=== PATIENT | male | born 1975 | race Caucasian/White ===

== ENCOUNTER 2018-10-26 15:49 | Emergency (ER) | payer MEDICAID ==
[~2018-10-26] VITALS: Ht 185.4 cm; Wt 90.9 kg
[2018-10-26] MEDS ORDERED: LORazepam 1 MG tablet PO ONE (16:05)
[2018-10-26] MEDS ORDERED: LORazepam 0.5 MG tablet PO NR (16:20)
[2018-10-26 16:22] LABS: BASOPHILS # (AUTO) 0.1 X10'3 (0-0.2); BASOPHILS % (AUTO) 0.4 % (0-1); EOSINOPHILS # (AUTO) 0.2 X10'3 (0-0.9); EOSINOPHILS % (AUTO) 1.3 % (0-6); HEMATOCRIT 42.1 % (42.0-52.0); HEMOGLOBIN 14.5 g/dl (14.0-17.9); LYMPHOCYTES # (AUTO) 1.7 X10'3 (1.1-4.8); LYMPHOCYTES % (AUTO) 12.4 % (21-51); MEAN CORPUSCULAR HEMOGLOBIN 32.4 PG (27.0-31.0); MEAN CORPUSCULAR HGB CONC 34.4 % (33.0-36.5); MEAN CORPUSCULAR VOLUME 94.2 FL (78-98); MEAN PLATELET VOLUME 7.3 FL (7.4-10.4); MONOCYTES # (AUTO) 0.9 X10'3 (0-0.9); MONOCYTES % (AUTO) 6.3 % (2-12); NEUTROPHILS # (AUTO) 11.1 X10'3 (1.8-7.7); NEUTROPHILS % (AUTO) 79.6 % (42-75); PLATELET COUNT 392 X10'3 (140-440); RED BLOOD COUNT 4.47 X10'6 (4.70-6.10); RED CELL DISTRIBUTION WIDTH 12.6 % (11.5-14.5); WHITE BLOOD COUNT 13.9 X10'3 (4.5-11.0)
[2018-10-26 16:37] LABS: ALANINE AMINOTRANSFERASE 30 U/L (12-78); ALBUMIN 4.2 G/DL (3.4-5.0); ALBUMIN/GLOBULIN RATIO 1.2 (1.1-1.5); ALKALINE PHOSPHATASE 53 IU/L (46-116); ANION GAP 11 (8-16); ASPARTATE AMINO TRANSFERASE 41 U/L (10-37); BILIRUBIN,TOTAL 0.4 MG/DL (0.1-1.0); BLOOD UREA NITROGEN 14 MG/DL (7-18); BUN/CREATININE RATIO 15.1 (5.4-32.0); CALCIUM 8.6 MG/DL (8.5-10.1); CHLORIDE 100 MMOL/L (99-107); CREATININE 0.93 MG/DL (0.60-1.10); GLUCOSE 107 MG/DL (70-104); SODIUM 136 MMOL/L (135-145); TOTAL CARBON DIOXIDE 24.6 MMOL/L (24-32); TOTAL PROTEIN 7.8 G/DL (6.4-8.2); eGFR 90 ML/MIN
[2018-10-26 16:45] LABS: ETHANOL < 0.010 GM/DL (0.0-0.010)
[2018-10-26 17:25] LABS: CLARITY,URINE CLEAR (Clear); COLOR,URINE YELLOW (Yellow); GLUCOSE, URINE NEGATIVE (Neg); KETONES,URINE TRACE mg/dl (Neg); LEUKOCYTE ESTERASE ,URINE NEGATIVE (Neg); NITRITES, URINE NEGATIVE (Neg); OCCULT BLOOD,URINE NEGATIVE (Neg); PROTEIN,URINE NEGATIVE (Neg); UROBILINOGEN,URINE 0.2 E.U/dL (0.2-1.0)
[2018-10-26 17:26] LABS: UA COLLECTION TYPE CLN CATCH MIDSTREAM
[2018-10-26 17:41] LABS: URINE AMPHETAMINE SCREEN NEGATIVE (Neg); URINE BARBITUATE SCREEN NEGATIVE (Neg); URINE BENZODIAZEPINES SCREEN NEGATIVE (Neg); URINE CANNABINOID SCREEN POSITIVE (Neg); URINE COCAINE SCREEN NEGATIVE (Neg); URINE METHADONE SCREEN NEGATIVE (Neg); URINE OPIATE SCREEN NEGATIVE (Neg); URINE PHENCYCLIDINE SCREEN NEGATIVE (Neg)
--- NOTE | 2018-10-26 19:50 | NUR ---
This patient was brought to the overflow section of the ER and placed on bed 21. No report was given by the patients previous nurse. The patients history is incomplete. There is no triage note nor nursing notes. Per the EMR this patient was given Ativan. The patient is awake, he exhibits flight of thought, he is delusional, and he presents as manic. This patient is oriented to person only. I will speak with the primary nurse to gather further information.
--- NOTE | 2018-10-26 20:00 | NUR ---
Call from NEMO Wen. She states this patient came in by [facility] with a [id number] written. All that is known is this patient was at his grandparents house? 911 was called for an unknown reason. At this time the patient is cooperative. He denies S/I or H/I. He has not had a tele-psych. Home meds are unknown. We are re-evaluating vital signs.
--- NOTE | 2018-10-26 20:28 | NUR ---
Call placed to [facility], verified patient in the queue. "Jeannette" indicates that pt is first in line for [facility] in the queue.
--- NOTE | 2018-10-26 21:37 | NUR ---
Packet faxed to [facility].
--- NOTE | 2018-10-26 22:00 | NUR ---
This patient is awake now. Tele-Psych is initiated.
[2018-10-26] MEDS ORDERED: ziprasidone IM 20mg inj **IM only IM PRN (23:10)
[2018-10-26] MEDS ORDERED: LORazepam 1 MG tablet PO PRN (23:10)
[2018-10-26] MEDS ORDERED: LORazepam 2 mg/ml vial IM PRN (23:10)
--- NOTE | 2018-10-27 01:00 | NUR ---
Patient sleeping quietly. In view from nursing station. Q15 minute rounding being for patient safety.
[2018-10-27] MEDS: LORazepam 0.5 MG tablet PO PRN (11:23)
--- NOTE | 2018-10-27 14:55 | NUR ---
Patient's sister Lubna contact info: [phone] OK to give info. Requests a phone call when patient is discharged and facility he went to.
--- NOTE | 2018-10-27 16:04 | NUR ---
Pt has spoken to his daughter and sister this afternoon, states "I feel better after talking to them". Still having delusions and paranoia, overheard on phone saying "I am relieved, I thought both my kids had been eaten, thank you for telling me they're ok". Pt has been polite today and agreeable.
--- NOTE | 2018-10-27 19:30 | NUR ---
This patient ate dinner. Patient responds to this chief underwriter by talking. He denies S/I or H/I. The patient still exhibits hallucinations and bizare.
--- NOTE | 2018-10-27 20:00 | NUR ---
This patient has been sleeping since dinner. He just awoke and ambulated to the bathroom without assistance. 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 Patient complied.
--- NOTE | 2018-10-28 00:45 | NUR ---
Patient is up to the bathroom. He ambulates without problem. Patient exhibits flights of ideas. Patient coached back to bed. He complies at first request. Q15 minute rounding for patient safety.
--- NOTE | 2018-10-28 06:30 | NUR ---
Asleep upon change of shift observation. Breathing WNL. In no acute distress. Undisturbed at this time.
--- NOTE | 2018-10-28 08:30 | NUR ---
Awakened for breakfast. Ate 100% of his meal. Presents as hyperactive and hypertalkative. Daughter Lucinda called . Concerned about "father being released without him being better." Anxious and scared about "this big change in my father." With permission of patient, informed daughter father was under the care of [facility] and the plan is to seek inpatient psychiatric treatment for mental health stabilization.
--- NOTE | 2018-10-28 09:30 | NUR ---
Sister Lucinda called and informed entry level staff accountant that patient had been exhibting signs of mental instability "for the past five years." Sister also concerned that patient "will be released before he's ready." Informed, with patient's permission, telepsychiatrist recommended inpatient hospitalization for patient.
--- NOTE | 2018-10-28 09:45 | NUR ---
Spoke with patient at his bedside. Patient believes he will be leaving the hospital after "72 hours" believes "this is all a misunderstanding. My mother told me my children were . What would you do? Of course I freaked out. My mother called the police because she was afraid I would kill myself." Patient went on to speak in a rambling, tangential manner. Thought process not based in reality. Insight and judgement are poor. Does not understand cause and effect. Believes he does not need to be in the hospital "after my 72 hours. I'm ready to go."
--- NOTE | 2018-10-28 10:26 | NUR ---
[facility] nurse [facility]. Report given.
--- NOTE | 2018-10-28 11:47 | NUR ---
Received call from Zoe Redd, for a nurse to nurse report. Report given.
--- NOTE | 2018-10-28 13:00 | NUR ---
Served lunch. Ate 100% of his meal. Asked to speak to his nurse. Apologized for "being a bother." States "I haven't been taking care of myself. Day after day I smoked cigarettes and didn't eat. My teeth suffered. (Shows staff his upper and lower teeth.) I didn't want to eat my mother's food. I finally signed up for food stamps. I think I can get better if I eat more."
[2018-10-28] MEDS: LORazepam 0.5 MG tablet PO PRN (13:24)
--- NOTE | 2018-10-28 15:30 | NUR ---
CAll received from the [facility] office. Patient has been accepted at [facility]. [facility] milk pickup truck driver will be here between 1545 and 1600.
--- NOTE | 2018-10-28 16:00 | NUR ---
Reel Slitter from [facility] here to tranport patient to [facility]. Patient transferred with all his personal belongings. Family took his belt home. Shoes were given to the delivery truck driver heavy. Daughter called and informed of transfer.
[2018-10-28 16:39] VITALS: BP 140/70
== END 2018-10-28 16:43 ==
LOC: ER 15:51
DX: F22 Delusional disorders (principal); F23 Brief psychotic disorder; F12.90 Cannabis use, unspecified, uncomplicated; F17.200 Nicotine dependence, unspecified, uncomplicated
CPT/HCPCS: 36415; 80053; 80305; 80320; 81003; 84443; 85025; 99285